=== PATIENT | male | born 1965 ===

== ENCOUNTER 2016-11-22 08:40 | Emergency (ER) | payer BC ==
[~2016-11-22 08:40] MED LIST: CLARITIN-D 241 EAC2 PO; EFFEXOR; EFFEXOR XR75 M1 PO; FLOMAX0.4 MG PO; NORCO 10/3251 TAB PO; PERCOCET 5/3251 TAB PO; REQUIP0.5 MG PO; ROPINIROLE
[2016-11-22] MEDS ORDERED: AMLODIPINE-BEN1 EAC7 PO (08:47)
[2016-11-22] MEDS ORDERED: BYSTOLIC10 M1 PO (08:48)
[2016-11-22 09:30] LABS: URINE BILIRUBIN NEGATIVE (NEG); URINE BLOOD NEGATIVE (NEG); URINE GLUCOSE (UA) NEGATIVE (NEG); URINE KETONE NEGATIVE (NEG); URINE LEUKOCYTE ESTERASE NEGATIVE (NEG); URINE NITRITE NEGATIVE (NEG); URINE PROTEIN SMALL (NEG); URINE SPECIFIC GRAVITY 1.025 (1.003-1.030)
[2016-11-22 09:35] LABS: URINE APPEARANCE CLEAR; URINE COLOR DARK YELLOW
[2016-11-22 09:36] LABS: URINE EPITHELIAL CELLS 0-1 /[HPF] (0-10); URINE MUCUS 3+; URINE RBC 0 /[HPF] (0-5); URINE WBC 0 /[HPF] (0-5)
[2016-11-22 09:42] LABS: BASO % 0.6 % (0-2); EOS % 1.5 % (0-7); EOSINOPHIL ABSOLUTE COUNT 0.1 tho/cmm (0.0-0.7); HCT-HEMATOCRIT 44.7 % (36.0-53.5); HGB-HEMOGLOBIN 15.4 gm/dl (13.5-17.0); IMMATURE GRANULOCYTES ABSOLUTE 0.02 tho/cmm (0-0.03); IMMATURE GRANULOCYTES PERCENT 0.3 % (0-0.3); LYMPH % 33.3 % (20-45); LYMPH ABSOLUTE COUNT 2.4 tho/cmm (0.8-4.5); MCH (MEAN CORPUSCULAR HGB) 30.9 pg (28.0-32.0); MCHC MEAN CORPUSCULAR HGB CONC 34.5 % (32.0-36.0); MCV (MEAN CELL VOLUME) 89.6 fl (82.0-96.0); MEAN PLATELET VOLUME 11.1 cmc (9.4-12.4); MONO % 9.2 % (0-12); MONOCYTE ABSOLUTE COUNT 0.7 tho/cmm (0.0-1.2); NEUTROPHILS % 55.1 % (40-80); PLATELET COUNT 196 tho/cmm (150-450); RED BLOOD COUNT 4.99 mil/cmm (4.40-5.70); RED CELL DISTRIBUTION WIDTH 13.8 % (12.4-16.4); WHITE BLOOD COUNT 7.3 tho/cmm (4.0-10.0)
[2016-11-22 10:02] LABS: ALBUMIN 3.8 g/dl (3.5-5.0); ALKALINE PHOSPHATASE 103 U/L (33-138); ALT/SGPT 78 U/L (12-78); ANION GAP 11 mmol/L (0-20); AST/SGOT 36 U/L (10-40); BILIRUBIN,TOTAL 0.4 mg/dl (0.0-1.5); BLOOD UREA NITROGEN 24 mg/dl (6-24); CALCIUM 9.4 mg/dl (8.5-10.5); CARBON DIOXIDE-VENOUS 28 mmol/L (22-32); CHLORIDE 107 mmol/l (96-110); CREATININE 1.21 mg/dl (0.60-1.30); GLUCOSE 120 mg/dL (70-110); LIPASE 175 U/L (73-393); POTASSIUM 4.6 mmol/L (3.7-5.1); SODIUM 141 mmol/L (135-145); eGFR VALUE FOR BLACK 79 mL/Min
[2016-11-22] MEDS ORDERED: REQUIP1 M1 PO (10:40)
[2016-11-22] MEDS ORDERED: TOPROL XL50 M1 PO (10:40)
[2016-11-22] MEDS ORDERED: FLAGYL500 M1 PO (11:29)
[2016-11-22] MEDS ORDERED: NORCO 5-325 TA1 EACH PO (11:29)
[2016-11-22] MEDS ORDERED: LEVAQUIN750 M1 PO (11:29)
== END 2016-11-22 11:39 ==
LOC: EDMED 08:40
PROVIDERS: Emergency Medicine
DX: K57.92 Diverticulitis of intestine, part unspecified, without perforation or abscess without bleeding (principal); Z90.89 Acquired absence of other organs
CPT/HCPCS: Q9967